=== PATIENT | male | born 1990 | race American Indian/Alaskan Native ===

== ENCOUNTER 2021-04-01 03:27 | Emergency (ER) | payer OTHER ==
--- NOTE | 2021-04-01 05:12 | Emergency Department Report ---
<BERNADINE VERA - Last Filed: 04/01/21 05:11> ED Alcohol HPI - General Chief Complaint: Alcohol Stated Complaint: AMS Time Seen by Provider: 04/01/21 03:48 Source: EMS Mode of arrival: Stretcher Limitations: Physical Limitation - History of Present Illness Initial Comments: Patient is a 30-year-old gentleman who was found unconscious at home. Paramedics were called gave the patient to Narcan the patient immediately woke up. According to paramedics patient had pinpoint pupils before he was given Narcan. Upon awakening the patient states he is only been drinking he drank [place]. States this type of thing happens all the time and he did not understand why there is such a commotion made about the incident. States the other drugs used was a THC vape. Denies any opiates or heroin abuse. - Related Data Allergies Allergy/AdvReac Type Severity Reaction Status Date / Time No Known Allergies Allergy Unverified 04/01/21 03:33 ED Review of Systems Comment: All other systems reviewed and negative ED Past Medical Hx - Past Medical History Previous Medical History?: No - Surgical History Past Surgical History?: No - Social History Smoking Status: Current Every Day Smoker Substance Use Type: Marijuana ED Physical Exam - General Limitations: Physical Limitation General appearance: alert, in no apparent distress - Head Head exam: Present: atraumatic, normocephalic - Eye Eye exam: Present: normal appearance - ENT ENT exam: Present: mucous membranes moist - Neck Neck exam: Present: normal inspection - Respiratory Respiratory exam: Present: normal lung sounds bilaterally. Absent: respiratory distress, wheezes, rales, rhonchi - Cardiovascular Cardiovascular Exam: Present: regular rate, normal rhythm, normal heart sounds. Absent: systolic murmur, diastolic murmur, rubs, gallop - GI/Abdominal GI/Abdominal exam: Present: soft, normal bowel sounds. Absent: distended, tenderness, guarding, rebound - Rectal Rectal exam: Present: deferred - Extremities Exam Extremities exam: Present: normal inspection - Back Exam Back exam: Present: normal inspection - Neurological Exam Neurological exam: Present: alert, oriented X3 - Psychiatric Psychiatric exam: Present: normal affect, normal mood - Skin Skin exam: Present: warm, dry, intact, normal color. Absent: rash ED Disposition Clinical Impression: Syncope, Polysubstance abuse Disposition: DC-01 TO HOME OR SELFCARE Condition: Stable Instructions: Syncope (ED), Substance Use Disorder, Syncope, [id number] Referrals: DALIA AGUILAR MD [Staff Physician] - 3-5 Days <VERAMARKOS - Last Filed: 04/01/21 07:07> ED Review of Systems ROS: Stated complaint: AMS Other details as noted in HPI ED Course Vital Signs 04/01/21 04/01/21 04/01/21 03:40 04:30 06:30 Temperature 98.2 F Pulse Rate 96 H 95 H Respiratory 16 13 Rate Blood Pressure 135/73 154/70 Blood Pressure 137/62 [Left] O2 Sat by Pulse 96 95 95 Oximetry ED Medical Decision Making - Medical Decision Making I evaluated patient. He stated that "I passed out.". He admits to marijuana use. I informed him that UDS was positive for cocaine and marijuana. He denies cocaine use. Patient ambulates without assistance. He is insightful and cooperative. He does not have any symptoms at this time. He is discharged home. He has stable vital signs heart rate 68 blood pressure 120/78. Oxygen saturation 98%. Respiratory rate 12 breaths/min. Discharged home in stable condition. He has family member awaiting him in the parking lot to take him home. Vital Signs - 24 hr 04/01/21 04/01/21 04/01/21 03:40 04:30 06:30 Temperature 98.2 F Pulse Rate 96 H 95 H Respiratory 16 13 Rate Blood Pressure 135/73 154/70 Blood Pressure 137/62 [Left] O2 Sat by Pulse 96 95 95 Oximetry Critical care attestation.: If time is entered above; I have spent that time in minutes in the direct care of this critically ill patient, excluding procedure time. ED Disposition Is pt being admited?: No Does the pt Need Aspirin: No
[2021-04-01 06:25] LABS: Amphetamine Screen,Urine PRESUMPTIVE NEGATIVE; Benzodiazepines Screen,Urine PRESUMPTIVE NEGATIVE; Cannabinoid Screen,Urine PRESUMPTIVE POSITIVE; Cocaine Screen,Urine PRESUMPTIVE POSITIVE; Methadone Screen,Urine PRESUMPTIVE NEGATIVE; Opiate Screen,Urine PRESUMPTIVE NEGATIVE
[2021-04-01 07:37] VITALS: BP 131/72
== END 2021-04-01 07:38 | disposition home or self-care (01) ==
LOC: ED 03:27
DX: R55 Syncope and collapse (principal); F19.10 Other psychoactive substance abuse, uncomplicated; F17.200 Nicotine dependence, unspecified, uncomplicated; F12.10 Cannabis abuse, uncomplicated
CPT/HCPCS: 36415; 80307; 80320; 99283; G0480

== ENCOUNTER 2022-01-01 21:14 | Emergency (ER) | payer OTHER ==
--- NOTE | 2022-01-01 22:23 | Emergency Department Report ---
ED General Adult HPI - General Chief complaint: Anxiety Stated complaint: Anxiety, shaking, right arm pain and numbness PUI?: No Time Seen by Provider: 01/01/22 21:50 Source: patient, RN notes reviewed, old records reviewed Mode of arrival: Ambulatory Limitations: No Limitations - History of Present Illness Initial comments: The patient is a 31-year-old gentleman with a history of polysubstance abuse, who presents to the ER today with complaint of right arm cramping, right forearm pain, right arm numbness, and anxiety. Patient endorses recreational cocaine and marijuana use. He last ingested yesterday. He denies homicidality and suicidality. Denies extremity weakness. Denies ataxia. Denies intentional overdose. -: Gradual Location: right, upper extremity Severity scale (0 -10): 8 Quality: aching Consistency: constant Improves with: none Worsens with: none - Related Data Previous Rx's Medication Instructions Recorded Last Taken Type Naloxone HCl [Narcan Nasal [place]] 4 mg NS PRN PRN #1 spray 01/01/22 Unknown Rx Allergies Allergy/AdvReac Type Severity Reaction Status Date / Time No Known Allergies Allergy Unverified 04/01/21 03:33 ED Review of Systems ROS: Stated complaint: RIGHT ARM NUMBNESS Other details as noted in HPI Constitutional: denies: fever Eyes: denies: eye discharge ENT: denies: epistaxis Respiratory: denies: cough Cardiovascular: denies: chest pain Gastrointestinal: denies: abdominal pain Musculoskeletal: arthralgia, myalgia Neurological: numbness. denies: weakness Psychiatric: anxiety. denies: homicidal thoughts, suicidal thoughts ED Past Medical Hx - Social History Smoking Status: Current Every Day Smoker Substance Use Type: Marijuana - Medications Home Medications: Home Medications Medication Instructions Recorded Confirmed Last Taken Type Naloxone HCl [Narcan Nasal [place]] 4 mg NS PRN PRN #1 spray 01/01/22 Unknown Rx ED Physical Exam - General Limitations: No Limitations General appearance: alert, anxious - Head Head exam: Present: atraumatic, normocephalic - Eye Eye exam: Present: normal appearance, EOMI. Absent: nystagmus - ENT ENT exam: Present: normal exam, normal orophraynx, mucous membranes moist, normal external ear exam - Neck Neck exam: Present: normal inspection, full ROM. Absent: tenderness, meningismus - Respiratory Respiratory exam: Present: normal lung sounds bilaterally. Absent: respiratory distress, wheezes, rales, rhonchi, stridor, decreased breath sounds - Cardiovascular Cardiovascular Exam: Present: regular rate, normal rhythm, normal heart sounds. Absent: bradycardia, tachycardia, irregular rhythm, systolic murmur, diastolic murmur, rubs, gallop - GI/Abdominal GI/Abdominal exam: Present: soft. Absent: distended, tenderness, guarding, rebound, rigid, pulsatile mass - Rectal Rectal exam: Present: deferred - Extremities Exam Extremities exam: Present: normal inspection, full ROM, normal capillary refill, other (2+ pulses noted in the bilateral upper and lower extremities. There is no palpable cord. negative Homans sign. Muscular compartments are soft. The pelvis is stable.). Absent: pedal edema, calf tenderness - Back Exam Back exam: Present: normal inspection, full ROM. Absent: tenderness, CVA tenderness (R), CVA tenderness (L), paraspinal tenderness, vertebral tenderness - Neurological Exam Neurological exam: Present: alert, oriented X3, normal gait, reflexes normal, other (No facial droop. Tongue midline. Extraocular movements intact bilaterally. Facial sensation intact to light touch in V1, V2, V3 distribution bilaterally. 5 and a 5 strength in 4 extremities. Sensation intact to light touch in 4 extremities.). Absent: motor sensory deficit - Psychiatric Psychiatric exam: Present: anxious. Absent: homicidal ideation, suicidal ideation - Skin Skin exam: Present: warm, dry, intact, normal color. Absent: rash ED Course Vital Signs 01/01/22 21:30 Temperature 98.6 F Pulse Rate 102 H Respiratory 16 Rate Blood Pressure 169/92 [Right] O2 Sat by Pulse 95 Oximetry - Pulse Oximetry Interpretation Digit-Finger Initial Pulse Oximetry Readin O2 Sat by Pulse Oximetry: 99 Actions Taken: none ED Medical Decision Making - Lab Data Vital Signs 01/01/22 21:30 Temperature 98.6 F Pulse Rate 102 H Respiratory 16 Rate Blood Pressure 169/92 [Right] O2 Sat by Pulse 95 Oximetry - EKG Data -: EKG Interpreted by Al EKG shows normal: sinus rhythm Rate: normal - EKG Data 01/01/22 22:20 The EKG is interpreted at 21: 36 Sinus rhythm, 90 bpm. Normal axis, normal P wave axis, high left ventricular voltage, QTC 4 11 ms. Not a STEMI. - Medical Decision Making Differential diagnosis, including but not limited to: Polysubstance abuse, anxiety, conversion disorder Assessment and plan: 31-year-old gentleman, who is afebrile, with reassuring vital signs, tachycardia resolved, elevated blood pressure reviewed and appreciated, asymptomatic, please reference the [employer] clinical policy on asymptomatic hypertension/elevated blood pressure. When I walked into the room, the patient is in no acute distress, typing and texting on his cellular phone. His physical examination is essentially unremarkable. I do not elicit any appreciable neurologic deficits on my exami nation. Patient sniffing and snorting quite a bit during the examination. However, he does not meet criteria for 1013 or 2013, and he is clinically sober at this time. Patient is advised to abstain from recreational drug consumption. He may follow-up with an outpatient primary care doctor. We will provide resources for outpatient detox. Critical care attestation.: If time is entered above; I have spent that time in minutes in the direct care of this critically ill patient, excluding procedure time. ED Disposition Clinical Impression: Marijuana use, Cocaine use, Elevated blood pressure reading Disposition: HOME / SELF CARE / HOMELESS Is pt being admited?: No Does the pt Need Aspirin: No Condition: Good Additional Instructions: Recommend that patient avoid consumption of alcohol, tobacco, cocaine, recreational drugs. Long-term consumption may cause , disability, paralysis, and loss of quality of life. Follow-up with outpatient detox resources that have been provided to the pat ient. Follow-up with an outpatient primary care doctor within the next month. Take a multivitamin on a daily basis. Please return to the emergency room right away with new pain, worsened pain, migration of pain, projectile vomiting, change in mental status, confusion, inability tolerate liquid feeds, new, worsened or different symptoms not present on the initial emergency room evaluation Referrals: [facility] [Outside[facility] - 3-[facility] - [facility] [Provider Group] - 3-5 Days Forms: Work/School Release Form(ED)
[2022-01-01 22:42] VITALS: BP 165/80
--- NOTE | 2022-01-08 17:59 | Electrocardiograph Report ---
[facility] Test Date: 2022-01-01 Test Time: 21:36:25 Pat Name: CHUCK SHERMAN Department: Room: Gender: M Field Technical Support Consultant: : 1990 Requested By: TAMIR FITZGERALD Order Number: [id number] Reading MD: Mesha Marques Measurements Intervals [place] Rate: 90 P: 32 DE: 136 QRS: 77 QRSD: 85 T: -25 QT: 335 QTc: 411 Interpretive Statements Sinus rhythm Nonspecific T wave abnormality Consider left ventricle hypertrophy No previous ECG available for comparison Electronically Signed On 01-08-2022 17:59:27 EDT by Mesha Marques
== END 2022-01-01 22:30 | disposition home or self-care (01) ==
LOC: ED 21:14
DX: R03.0 Elevated blood-pressure reading, without diagnosis of hypertension (principal); F14.90 Cocaine use, unspecified, uncomplicated; F12.10 Cannabis abuse, uncomplicated; F17.290 Nicotine dependence, other tobacco product, uncomplicated
CPT/HCPCS: 93005; 99283